=== PATIENT | female | born 1985 | race Caucasian/White ===

== ENCOUNTER → 2017-07-07 | Outpatient (CLI) | payer OTHER ==
[~2017-07-07] VITALS: Ht 154.9 cm; Wt 78.0 kg
[~2017-07-07] MED LIST: ENDOCET 5-3251 EACH PO; IBUPROFEN800 MG PO; PRENATAL TABLE1 EAC3 PO
[2017-07-07 07:43] VITALS: BP 111/70
== END | disposition home or self-care (01) ==
LOC: IVINF 07:38
DX: Z34.83 Encounter for supervision of other normal pregnancy, third trimester (principal); Z31.82 Encounter for Rh incompatibility status; Z3A.28 28 weeks gestation of pregnancy; Z67.11 Type A blood, Rh negative
CPT/HCPCS: 96372; J2790

== ENCOUNTER 2017-09-29 23:00 | Inpatient (IN) | payer OTHER ==
[~2017-09-29] VITALS: Ht 154.9 cm; Wt 80.0 kg
[2017-09-30] VITALS (27 sets, daily range): BP systolic 110–157; BP diastolic 58–90
[2017-09-30 00:32] LABS: AMPHETAMINE NEGATIVE (500 ng/mL); BARBITURATES NEGATIVE (200 ng/mL); BENZODIAZEPINES NEGATIVE (150 ng/mL); BUPRENORPHINE NEGATIVE (10 ng/mL); COCAINE NEGATIVE (150 ng/mL); METHADONE NEGATIVE (200 ng/mL); METHAMPHETAMINE NEGATIVE (500 ng/mL); OPIATES (MORPHINE) NEGATIVE (100 ng/mL); OXYCODONE NEGATIVE (100 ng/mL); PHENCYCLIDINE NEGATIVE (25 ng/mL); PROPOXYPHENE NEGATIVE (300 ng/mL); THC CANNABINOIDS NEGATIVE (50 ng/mL); TRICYCLIC ANTIDEPRESSANTS NEGATIVE (300 ng/mL)
[2017-09-30 00:35] LABS: BASOPHIL (%) 0.1 % (0-1); EOSINOPHIL (%) 0.3 % (0-5); HEMATOCRIT 37.3 % (36.0-46.0); HEMOGLOBIN 13.3 G/DL (11.9-15.5); IMMATURE GRANULOCYTE (%) 0.8 % (0.0-0.7); LYMPHOCYTE (%) 19.8 % (15-42); LYMPHOCYTE COUNT 1.9 K/uL (1.0-2.8); MCH 32.6 PG (29.0-34.0); MCHC 35.7 G/DL (30.0-36.0); MCV 91.4 FL (83-99); MONOCYTE (%) 4.7 % (3-12); MONOCYTE COUNT 0.4 K/uL (0-0.8); NEUTROPHIL (%) 74.3 % (45-76); PLATELET COUNT 181 K/uL (156-360); RBC DIS.WIDTH-CV 13.4 % (11.8-14.6); RBC DIS.WIDTH-SD 45.1 % (39-53); RED BLOOD COUNT 4.08 M/uL (3.80-5.20); WHITE BLOOD COUNT 9.4 K/uL (4.1-10.2)
[2017-09-30] MEDS ORDERED: IBUPROFEN800 MG PO (08:18)
== END 2017-10-02 14:18 | disposition home or self-care (01) | DRG 775 ==
LOC: LDRP-OP 23:00 → 2WEST 23:01 → LDRP-OP 10-24 13:18
PROVIDERS: Nurse Practitioner
DX: O99.214 Obesity complicating childbirth (principal); O36.0931 Maternal care for other rhesus isoimmunization, third trimester, fetus 1; O70.1 Second degree perineal laceration during delivery; O69.81X1 Labor and delivery complicated by cord around neck, without compression, fetus 1; O99.824 Streptococcus B carrier state complicating childbirth; E66.9 Obesity, unspecified; Z37.0 Single live birth; Z3A.40 40 weeks gestation of pregnancy; O12.04 Gestational edema, complicating childbirth; O63.1 Prolonged second stage (of labor); O48.0 Post-term pregnancy; Z87.410 Personal history of cervical dysplasia; Z68.33 Body mass index [BMI] 33.0-33.9, adult
CPT/HCPCS: 80306 90; 83030; 85025; 86850; 86900; 86901; C1755; G0378; J2405; J2790; J3010; J7120